=== PATIENT | male | born 1950 | race Two or more races ===

== ENCOUNTER 2017-10-11 12:08 | Emergency (ER) | payer OTHER ==
[~2017-10-11] VITALS: Ht 190.5 cm; Wt 112.0 kg
[~2017-10-11 12:08] MED LIST: KETO10TA2 PO; LEVSIN/SL0.125 MG SL; TAMS0.4C PO
[2017-10-11] MEDS ORDERED: AMLODIPINE BESYL5 MG (12:29)
== END 2017-10-11 20:13 | disposition home or self-care (01) ==
LOC: ER 12:08 → CPU-OBS 12:32 → ER 12:32
DX: I10 Essential (primary) hypertension (principal)
CPT/HCPCS: G0379; 93005

== ENCOUNTER 2022-05-03 06:41 | Emergency (ER) | payer OTHER ==
[~2022-05-03] VITALS: Ht 190.5 cm; Wt 115.7 kg
[~2022-05-03 06:41] MED LIST changes: +AMLODIPINE BESYL5 MG
[2022-05-03] MEDS ORDERED: KETO10TA2 PO (14:11)
[2022-05-03] MEDS ORDERED: TAMS0.4C PO (14:11)
== END 2022-05-03 14:23 | disposition home or self-care (01) ==
LOC: ER 06:41
DX: N20.0 Calculus of kidney (principal)

== ENCOUNTER 2023-10-14 10:36 | Emergency (ER) | payer OTHER ==
[~2023-10-14] VITALS: Ht 190.5 cm; Wt 111.1 kg
[2023-10-14] MEDS ORDERED: MEPERIDINE HCL/PF 50 MG/ML VIAL IM STA (11:42)
[2023-10-14 12:00] LABS: HEMATOCRIT 37.1 % (39.0-48.0); MEAN CELL VOLUME 87.9 fL (80.0-100.00); MEAN CORPUSCULAR HEMOGLOBIN 30.8 pg (27.00-32.0); MEAN CORPUSCULAR HGB CONC 35.1 g/dl (32.0-36.0); PLATELET COUNT 238 K/uL (150-450); RED BLOOD COUNT 4.22 M/uL (4.00-6.00)
[2023-10-14 12:23] LABS: CALCIUM 9.7 mg/dL (8.5-10.1); CREATININE SERUM 0.95 mg/dL (0.70-1.30); GFR 78.15; POTASSIUM 3.66 mEq/L (3.5-5.1)
== END 2023-10-14 14:47 | disposition home or self-care (01) ==
LOC: ER 10:37
PROVIDERS: General Practice
DX: N23 Unspecified renal colic (principal); E78.00 Pure hypercholesterolemia, unspecified; I10 Essential (primary) hypertension; Z87.442 Personal history of urinary calculi
CPT/HCPCS: 36415; 96372; 99283; J3490